=== PATIENT | male | born 1965 | race Caucasian/White ===

== ENCOUNTER 2024-06-10 09:47 | Day surgery (SDC) | payer OTHER ==
[2024-06-10] VITALS (9 sets, daily range): BP systolic 114–129; BP diastolic 55–106; PULSE 46–73; RESP 8–16; TEMP 98.5; O2SAT 92–97
[~2024-06-10] VITALS: Ht 177.8 cm; Wt 140.4 kg
[2024-06-10 10:40] LABS: BASOPHILS % (AUTO) 0.5 % (0-1); EOSINOPHILS # (AUTO) 0.3 X10'3 (0-0.9); EOSINOPHILS % (AUTO) 3.2 % (0-6); HEMATOCRIT 33.9 % (42.0-52.0); HEMOGLOBIN 11.1 g/dl (14.0-17.9); LYMPHOCYTES # (AUTO) 1.7 X10'3 (1.1-4.8); LYMPHOCYTES % (AUTO) 22.1 % (21-51); MEAN CORPUSCULAR HGB CONC 32.9 g/dL (33.0-36.5); MEAN CORPUSCULAR VOLUME 85.1 FL (78-98); MEAN PLATELET VOLUME 8.6 FL (7.4-10.4); MONOCYTES # (AUTO) 0.6 X10'3 (0-0.9); MONOCYTES % (AUTO) 8.3 % (2-12); NEUTROPHILS # (AUTO) 5.2 X10'3 (1.8-7.7); NEUTROPHILS % (AUTO) 65.9 % (42-75); PLATELET COUNT 257 X10'3 (140-440); RED BLOOD COUNT 3.98 X10'6 (4.70-6.10); RED CELL DISTRIBUTION WIDTH 14.9 % (11.5-14.5); WHITE BLOOD COUNT 7.8 X10'3 (4.5-11.0)
[2024-06-10 10:53] LABS: APTT 28 SECONDS (22-32); PROTHROMBIN TIME 10.9 SECONDS (9.0-12.0)
[2024-06-10 10:56] LABS: ALBUMIN 3.4 G/DL (3.4-5.0); ANION GAP 8 (8-16); BLOOD UREA NITROGEN 24 MG/DL (7-18); BUN/CREATININE RATIO 19.2 (10.0-20.0); CHLORIDE 107 MMOL/L (99-107); CHOLESTEROL 140 MG/DL (0-200); CREATININE 1.25 MG/DL (0.60-1.10); GLUCOSE 97 MG/DL (70-104); HDL CHOLESTEROL 28 MG/DL (35-60); LDL CHOLESTEROL 91 MG/DL (50-100); POTASSIUM 3.9 MMOL/L (3.5-5.1); SODIUM 143 MMOL/L (135-145); TOTAL CARBON DIOXIDE 27.9 MMOL/L (24-32); TRIGLYCERIDES 134 MG/DL (20-135); eCRCL 67 ML/MIN; eGFR 60 ML/MIN
[2024-06-10] MEDS: diphenhydrAMINE 25mg capsule PO PRN (11:37)
[2024-06-10] MEDS: LORazepam 0.5 MG tablet PO PRN (11:37)
[2024-06-10] MEDS: normal saline 1,000 ML IV SCH (11:37)
[2024-06-10] MEDS ORDERED: LIDOcaine 1% (10mg/ml) 2ml vial ONE (12:03)
[2024-06-10] MEDS ORDERED: CETI10TA14 PO (12:04)
[2024-06-10] MEDS ORDERED: heparin 1,000unit/ml 10ml vial 10 ML ONE (12:04)
[2024-06-10] MEDS ORDERED: BACL20TA PO (12:04)
[2024-06-10] MEDS ORDERED: fentaNYL/PF 50MCG/1 ML 2ML syringe ONE (12:04)
[2024-06-10] MEDS ORDERED: iohexol 350MG/ML 100ml bottle IV ONE (12:04)
[2024-06-10] MEDS ORDERED: LOSA100T58 PO (12:04)
[2024-06-10] MEDS ORDERED: midazolam 1 mg/ML 2ml injection ONE (12:04)
[2024-06-10] MEDS ORDERED: FLO0.4C PO (12:04)
[2024-06-10] MEDS ORDERED: HYDR25TA5 PO (12:04)
[2024-06-10] MEDS ORDERED: ASPI-611 PO (12:04)
[2024-06-10] MEDS ORDERED: OXYC10TA47 PO (12:04)
[2024-06-10] MEDS ORDERED: PREG100C56 PO (12:04)
[2024-06-10] MEDS ORDERED: PANT20TA18 PO (12:04)
[2024-06-10] MEDS ORDERED: verapamil 2.5 mg/ml inj IV ONE (12:04)
[2024-06-10] MEDS ORDERED: nitroGLYCERIN 500mcg/5mL D5W 5 ML IV ONE (12:06)
[2024-06-10] MEDS ORDERED: HYDROcodone/acetaminophen 5mg/325mg tablet PO PRN (14:30)
[2024-06-10] MEDS ORDERED: HYDROcodone/acetaminophen 10/325mg tab PO PRN (14:30)
== END 2024-06-10 16:25 | disposition home or self-care (01) ==
LOC: SSTAY O 09:47
PROVIDERS: ATTEND Student in an Organized Health Care Education/Training Program
DX: I25.110 Atherosclerotic heart disease of native coronary artery with unstable angina pectoris (principal); E78.00 Pure hypercholesterolemia, unspecified; I10 Essential (primary) hypertension; G47.33 Obstructive sleep apnea (adult) (pediatric); I73.9 Peripheral vascular disease, unspecified; Z79.82 Long term (current) use of aspirin; Z79.891 Long term (current) use of opiate analgesic; Z79.899 Other long term (current) drug therapy; Z88.1 Allergy status to other antibiotic agents; Z88.8 Allergy status to other drugs, medicaments and biological substances; Z82.49 Family history of ischemic heart disease and other diseases of the circulatory system
CPT/HCPCS: 36415; 80048; 80061; 85025; 85610; 85730; 93005; 93458; A6258; J1644; J2250; J3010; J3490; J7030; Q0163; Q9967; 99152; A6402; C1894